=== PATIENT | female | born 2005 | race Caucasian/White ===

== ENCOUNTER 2025-06-19 12:56 | Emergency (ER) | payer OTHER, SELFPAY ==
[2025-06-19 13:18] VITALS: BP 125/89
[2025-06-19 13:36] LABS: HCG, Urine Qualitative Screen Negative
[2025-06-19] MEDS: ZOFRAN ODT (ORALLY DISINTEGRATING) 4 MG PO (14:36)
[2025-06-19] MEDS: TYLENOL 650 MG PO (14:36)
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
== END 2025-06-19 15:53 | disposition home or self-care (01) ==
LOC: EMR 12:56
PROVIDERS: Emergency Medicine; EMERGENCY PHYSICIAN Emergency Medicine; FAMILY PHYSICIAN Physician Assistant Medical
DX: S09.90XA Unspecified injury of head, initial encounter (principal); V43.52XA Car driver injured in collision with other type car in traffic accident, initial encounter
CPT/HCPCS: 99284; 70450; 72125; 81025